=== PATIENT | male | born 1960 | race Native Hawaiian/Other Pacific Islander ===

== ENCOUNTER 2017-08-10 11:22 | Outpatient (CLI) | payer OTHER | END 2017-08-10 19:00 | disposition home or self-care (01) | LOC: US 11:22 | DX: M79.604 Pain in right leg (principal) ==

== ENCOUNTER 2021-05-25 13:15 | Outpatient (CLI) | payer OTHER ==
[~2021-05-25] VITALS: Ht 188 cm; Wt 117.9 kg
== END 2021-05-25 19:14 | disposition home or self-care (01) ==
LOC: INF 13:15
PROVIDERS: ATTEND Internal Medicine
DX: Z23 Encounter for immunization (principal); U07.1 COVID-19
CPT/HCPCS: 96365; M0244